=== PATIENT | male | born 1975 | race African-American/Black ===

== ENCOUNTER 2022-12-18 17:52 | Emergency (ER) | payer OTHER ==
[~2022-12-18] VITALS: Ht 177.8 cm; Wt 95.3 kg
[2022-12-18 18:00] VITALS: BP_SYST 149
[2022-12-18 18:33] VITALS: BP_SYST 137
[2022-12-18] MEDS ORDERED: DOXYCYCLINE HYCLATE 100 MG CAPSULE PO ONE (18:45)
[2022-12-18] MEDS ORDERED: cefTRIAXone 250 MG VIAL IM ONE (18:45)
== END 2022-12-18 18:55 | disposition left against medical advice (07) ==
LOC: SED 17:52
DX: K62.89 Other specified diseases of anus and rectum (principal); Z53.21 Procedure and treatment not carried out due to patient leaving prior to being seen by health care provider
CPT/HCPCS: 99281

== ENCOUNTER 2023-05-13 05:07 | Emergency (ER) | payer OTHER ==
[~2023-05-13] VITALS: Ht 177.8 cm; Wt 86.2 kg
[2023-05-13 05:26] VITALS: BP_SYST 136; PULSE 87; RESP 17; TEMP 97.8; O2SAT 97
[2023-05-13 06:25] VITALS: BP_SYST 107; PULSE 82; RESP 13; TEMP 98; O2SAT 98
== END 2023-05-13 06:40 | disposition home or self-care (01) ==
LOC: SED 05:07
DX: R00.2 Palpitations (principal); F41.1 Generalized anxiety disorder; Z79.899 Other long term (current) drug therapy
CPT/HCPCS: 93005; 99283